=== PATIENT | male | born 1970 | race Caucasian/White ===

== ENCOUNTER → 2018-07-05 | Outpatient (REF) | payer OTHER ==
[~2018-07-05] MED LIST: DOC100 PO; HYDR-3083 PO; IBU800 PO; NO MEDS; PER PO
[2018-07-06 09:13] LABS: LDL CHOLESTEROL 166 mg/dl
== END ==
LOC: ZZSENDIN 09:36
PROVIDERS: ATTEND Family Medicine
DX: I10 Essential (primary) hypertension (principal)
CPT/HCPCS: 36415; 82310; 82374; 82435; 82465; 82565; 82947; 83718; 84132; 84295; 84478; 84520